=== PATIENT | female | born 2000 | race Hispanic/Latino ===

== ENCOUNTER 2020-01-13 21:07 | Emergency (ER) | payer SELFPAY ==
[2020-01-13 21:42] LABS: Basophils % (Auto) 0.4 % (0.0-1.8); Eosinophils # (Auto) 0.2 K/mm3 (0.0-0.4); Eosinophils % (Auto) 1.9 % (0.0-4.3); Hematocrit 41.9 % (30.3-42.9); Hemoglobin 14.2 gm/dl (10.1-14.3); Lymphocytes # (Auto) 2.6 K/mm3 (1.2-5.4); Lymphocytes % (Auto) 25.3 % (13.4-35.0); Mean Corpuscular HGB Conc 34 % (30-34); Mean Corpuscular Volume 99 fl (79-97); Monocytes # (Auto) 0.7 K/mm3 (0.0-0.8); Monocytes % (Auto) 7.2 % (0.0-7.3); Platelet Count 215 K/mm3 (140-440); Red Blood Count 4.25 M/mm3 (3.65-5.03); Red Cell Distribution Width 12.6 % (13.2-15.2)
[2020-01-13] MEDS ORDERED: SODIUM CHLORIDE 0.9% 1000 ML 1,000 ML IV ONE (21:46)
[2020-01-13] MEDS ORDERED: ONDANSETRON 4 MG/2 ML INJ IV ONE (21:46)
[2020-01-13] MEDS ORDERED: MORPHINE 2 MG/1 ML INJ IV ONE (22:00)
[2020-01-13 22:05] LABS: Alanine Aminotransferase 9 units/L (7-56); Albumin 4.8 g/dL (3.9-5); BUN/Creatinine Ratio 18; Blood Urea Nitrogen 9 mg/dL (7-17); Calcium 9.3 mg/dL (8.4-10.2); Hemolysis Index 7
[2020-01-13] MEDS: KETOROLAC 30 MG/1 ML INJ IV ONE (22:13)
--- NOTE | 2020-01-13 22:51 | Emergency Department Report ---
ED Abdominal Pain HPI - General Chief Complaint: Abdominal Pain Stated Complaint: ABDOMINAL PAIN Time Seen by Provider: 01/13/20 21:34 Source: patient Mode of arrival: Ambulatory Limitations: No Limitations - History of Present Illness Initial Comments: Patient is a 19-year-old female who presents emergency room with complaints of lower abdominal pain and distention that began around 6 AM this morning. She has associated nausea and vomiting. She states she has had approximately 3 episodes of vomiting. She states that 2 days ago she had a subjective fever but that has since resolved. She states that she has had constipation for 2 days. She states that she has had decreased urination. She denies any diarrhea, hematochezia, hematemesis, melena, shortness of breath, chest pain. She states that 2 days ago she went to [employer] and had a COVID-19 test because she works in [employer] and states that it was negative. She denies any sick contacts or recent travel. She states she has a past medical history of a hernia surgery repair x3, she states that her last surgery was in 2018 at [facility] in [place]. She states she has an allergy to hydrocodone and tramadol but states that she has had morphine in the hospital before without any issues. Severity scale (0 -10): 4 - Related Data Previous Rx's Medication Instructions Recorded Last Taken Type Ketorolac [Toradol] 10 mg PO Q6H PRN #7 tablet 01/14/20 Unknown Rx Ondansetron [Zofran Odt] 4 mg PO Q8HR PRN #10 tab.rapdis 01/14/20 Unknown Rx cephALEXin [Keflex] 500 mg PO BID 7 Days #14 cap 01/14/20 Unknown Rx Allergies Allergy/AdvReac Type Severity Reaction Status Date / Time hydrocodone Allergy Anaphylaxis Verified 01/13/20 21:11 tramadol Allergy Anaphylaxis Verified 01/13/20 21:11 ED Review of Systems ROS: Stated complaint: ABDOMINAL PAIN Other details as noted in HPI Comment: All other systems reviewed and negative ED Past Medical Hx - Surgical History Past Surgical History?: Yes Additional Surgical History: 3 hernia mesh SX - Social History Smoking Status: Current Every Day Smoker - Medications Home Medications: Home Medications Medication Instructions Recorded Confirmed Last Taken Type Ketorolac [Toradol] 10 mg PO Q6H PRN #7 tablet 01/14/20 Unknown Rx Ondansetron [Zofran Odt] 4 mg PO Q8HR PRN #10 tab.rapdis 01/14/20 Unknown Rx cephALEXin [Keflex] 500 mg PO BID 7 Days #14 cap 01/14/20 Unknown Rx ED Physical Exam - General Limitations: No Limitations General appearance: alert, in no apparent distress - Head Head exam: Present: atraumatic, normocephalic - Eye Eye exam: Present: normal appearance - ENT ENT exam: Present: mucous membranes moist - Respiratory Respiratory exam: Present: normal lung sounds bilaterally. Absent: respiratory distress, wheezes, rales, rhonchi, stridor, chest wall tenderness, accessory muscle use, decreased breath sounds, prolonged expiratory - Cardiovascular Cardiovascular Exam: Present: regular rate, normal rhythm, normal heart sounds. Absent: systolic murmur, diastolic murmur, rubs, gallop - GI/Abdominal GI/Abdominal exam: Present: soft, distended (lower), tenderness (lower), normal bowel sounds. Absent: guarding, rebound, rigid, hernia - Neurological Exam Neurological exam: Present: alert, oriented X3 - Psychiatric Psychiatric exam: Present: normal affect, normal mood - Skin Skin exam: Present: warm, dry, intact ED Course Vital Signs 01/13/20 01/14/20 21:10 02:24 Temperature 97.8 F 98.0 F Pulse Rate 93 H 76 Respiratory 18 15 Rate Blood Pressure 111/72 Blood Pressure 103/64 [Right] O2 Sat by Pulse 99 99 Oximetry ED Medical Decision Making - Lab Data Result diagrams: 01/13/20 21:31 01/13/20 21:31 Lab Results 01/13/20 01/13/20 01/13/20 Range/Units 21:31 21:31 21:31 WBC 10.2 (4.5-11.0) K/mm3 RBC 4.25 (3.65-5.03) M/mm3 Hgb 14.2 (10.1-14.3) gm/dl Hct 41.9 (30.3-42.9) % MCV 99 H (79-97) fl MCH 33 H (28-32) pg MCHC 34 (30-34) % RDW 12.6 L (13.2-15.2) % Plt Count 215 (140-440) K/mm3 Lymph % (Auto) 25.3 (13.4-35.0) % [place] % (Auto) 7.2 (0.0-7.3) % Eos % (Auto) 1.9 (0.0-4.3) % Baso % (Auto) 0.4 (0.0-1.8) % Lymph # 2.6 (1.2-5.4) K/mm3 [place] # 0.7 (0.0-0.8) K/mm3 Eos # 0.2 (0.0-0.4) K/mm3 Baso # 0.0 (0.0-0.1) K/mm3 Seg Neutrophils % 65.2 (40.0-70.0) % Seg Neutrophils # 6.7 (1.8-7.7) K/mm3 Sodium 134 L (137-145) mmol/L Potassium 3.8 (3.6-5.0) mmol/L Chloride 100.7 (98-107) mmol/L Carbon Dioxide 23 (22-30) mmol/L Anion Gap 14 mmol/L BUN 9 (7-17) mg/dL Creatinine 0.5 L (0.7-1.2) mg/dL Estimated GFR > 60 ml/min BUN/Creatinine Ratio 18 % Glucose 96 (65-100) mg/dL Calcium 9.3 (8.4-10.2) mg/dL Total Bilirubin 0.60 (0.1-1.2) mg/dL AST 15 (5-40) units/L ALT 9 (7-56) units/L Alkaline Phosphatase 67 (35-129) units/L Total Protein 7.4 (6.3-8.2) g/dL Albumin 4.8 (3.9-5) g/dL Albumin/Globulin Ratio 1.8 % Lipase 25 (13-60) units/L HCG, Qual (Negative) Urine Color (Yellow) Urine Turbidity (Clear) Urine pH (5.0-7.0) Ur Specific [place] (1.003-1.030) Urine Protein (Negative) mg/dL Urine Glucose (UA) (Negative) mg/dL Urine Ketones (Negative) mg/dL Urine Blood (Negative) Urine Nitrite (Negative) Urine Bilirubin (Negative) Urine Urobilinogen (<2.0) mg/dL Ur Leukocyte Esterase (Negative) Urine WBC (Auto) (0.0-6.0) /HPF Urine RBC (Auto) (0.0-6.0) /HPF U Epithel Cells (Auto) (0-13.0) /HPF Urine Bacteria (Auto) (Negative) /HPF 01/13/20 01/13/20 Range/Units 21:31 23:29 WBC (4.5-11.0) K/mm3 RBC (3.65-5.03) M/mm3 Hgb (10.1-14.3) gm/dl Hct (30.3-42.9) % MCV (79-97) fl MCH (28-32) pg MCHC (30-34) % RDW (13.2-15.2) % Plt Count (140-440) K/mm3 Lymph % (Auto) (13.4-35.0) % [place] % (Auto) (0.0-7.3) % Eos % (Auto) (0.0-4.3) % Baso % (Auto) (0.0-1.8) % Lymph # (1.2-5.4) K/mm3 [place] # (0.0-0.8) K/mm3 Eos # (0.0-0.4) K/mm3 Baso # (0.0-0.1) K/mm3 Seg Neutrophils % (40.0-70.0) % Seg Neutrophils # (1.8-7.7) K/mm3 Sodium (137-145) mmol/L Potassium (3.6-5.0) mmol/L Chloride (98-107) mmol/L Carbon Dioxide (22-30) mmol/L Anion Gap mmol/L BUN (7-17) mg/dL Creatinine (0.7-1.2) mg/dL Estimated GFR ml/min BUN/Creatinine Ratio % Glucose (65-100) mg/dL Calcium (8.4-10.2) mg/dL Total Bilirubin (0.1-1.2) mg/dL AST (5-40) units/L ALT (7-56) units/L Alkaline Phosphatase (35-129) units/L Total Protein (6.3-8.2) g/dL Albumin (3.9-5) g/dL Albumin/Globulin Ratio % Lipase (13-60) units/L HCG, Qual Negative (Negative) Urine Color Yellow (Yellow) Urine Turbidity Slightly-cloudy (Clear) Urine pH 7.0 (5.0-7.0) Ur Specific [place] 1.005 (1.003-1.030) Urine Protein <15 mg/dl (Negative) mg/dL Urine Glucose (UA) Neg (Negative) mg/dL Urine Ketones Neg (Negative) mg/dL Urine Blood Neg (Negative) Urine Nitrite Pos (Negative) Urine Bilirubin Neg (Negative) Urine Urobilinogen < 2.0 (<2.0) mg/dL Ur Leukocyte Esterase Sm (Negative) Urine WBC (Auto) 11.0 H (0.0-6.0) /HPF Urine RBC (Auto) 5.0 (0.0-6.0) /HPF U Epithel Cells (Auto) 4.0 (0-13.0) /HPF Urine Bacteria (Auto) 4+ (Negative) /HPF Vital Signs 01/13/20 01/14/20 21:10 02:24 Temperature 97.8 F 98.0 F Pulse Rate 93 H 76 Respiratory 18 15 Rate Blood Pressure 111/72 Blood Pressure 103/64 [Right] O2 Sat by Pulse 99 99 Oximetry - Radiology Data Radiology results: report reviewed CT abdomen pelvis w con INDICATION / CLINICAL INFORMATION: Pt complains of abd pain with N/V, Hx of hernia surgery x 3. TECHNIQUE: Axial CT imaging of abdomen and pelvis was obtained with IV contrast. Coronal and sagittal reformatted imaging obtained and reviewed. All CT scans at this location are performed using CT dose reduction for ALARA by means of automated exposure control. COMPARISON: None available. FINDINGS: CT abdomen with contrast demonstrates normal appearance of the liver, spleen, pancreas, kidneys, and adrenal glands. No gallbladder abnormality noted. No biliary dilatation. CT pelvis with contrast demonstrates normal appearance of the appendix. The uterus contains IUD which appears to be in grossly satisfactory position. There are 2 large cystic masses seen in the anterior inferior right pelvis, with mass effect on the urinary bladder. I suspect these will represent large multiple right ovarian cysts. Each mass measures approximately 4-5 cm in diameter. Small amount of free fluid is seen scattered throughout the pelvis. This may indicate recent cyst rupture. GI tract is grossly unremarkable. Evidence of mesh within the abdominal wall consistent with prior abdominal wall hernia repair. Visualized lung bases are clear. No significant osseous abnormality. IMPRESSION: 1. There are 2 large cystic masses in the right lower quadrant, causing mass effect on the urinary bladder. I suspect these will represent large ovarian simple cysts. However, I would suggest further evaluation with pelvic ultrasound to ensure a multiseptated cystic neoplasm is not present. There is scattered free fluid throughout the pelvis possibly indicating recent cyst rupture. 2. No other significant abnormality within the abdomen or pelvis. Signer Name: Cathy Robles MD Signed: 01/14/2020 12:05 AM Workstation Name: [id number] Transcribed By: Dictated By: Cathy Robles MD Electronically Authenticated By: Cathy Robles MD Signed Date/Time: 01/14/20 0005 DD/ 2358 TD/TT: ULTRASOUND PELVIS INDICATION / CLINICAL INFORMATION: lower abd pain, large masses on CT. TECHNIQUE: Transabdominal. Transvaginal Duplex Color Doppler used: Yes. COMPARISON: CT abdomen/pelvis, 01/13/2020 FINDINGS: UTERUS: Present. - Appearance (if present): No significant abnormality. - Size in cm (if present): 7.9 x 3.7 x 4.8 cm. - Endometrial Complex (if present): No significant abnormality.. IUD is present within the endometrium. - Mass lesions: None. - Additional findings: None. RIGHT ADNEXA: There are 2 cystic masses within the right lower quadrant, as noted on earlier CT scan. One of the masses is a simple appearing cyst measuring 4.2 x 2.7 cm. The second mass is complex in appearance with a few internal septations and multiple internal echo es. This mass measures 4.6 x 3.7 cm. LEFT ADNEXA: No significant ovarian cyst or mass. Normal color Doppler blood flow. FREE FLUID: Small to moderate amount of free fluid is scattered throughout the pelvis. ADDITIONAL FINDINGS: None. IMPRESSION: 1. 2 cystic masses are present in the right lower quadrant which correlate with abnormal findings on CT scan. One is a simple cyst. The other is a complex cyst, possibly a hemorrhagic cyst. (Tubo- ovarian abscess is also within the differential but thought to be less likely - this will need to be correlated with clinical symptoms/presentation.) The presence of small to moderate amount of fluid throughout the pelvis suggests recent cyst rupture. Suggest follow-up pelvic ultrasound in 4-6 weeks to ensure regression and/or resolution of these findings. 2. IUD present and unremarkable. Signer Name: Cathy Robles MD Signed: 01/14/2020 1:48 AM Workstation Name: [id number] Transcribed By: Dictated By: Cathy Robles MD Electronically Authenticated By: Cathy Robles MD Signed Date/Time: 01/14/20147 DD/ 9 TD/TT: - Medical Decision Making Patient is a 19-year-old female who presents emergency room with complaints of lower abdominal pain and distention that began around 6 AM this morning. She has associated nausea and vomiting. She states she has had approximately 3 episodes of vomiting. She states that 2 days ago she had a subjective fever but that has since resolved. She states that she has had constipation for 2 days. She states that she has had decreased urination. She denies any diarrhea, hematochezia, hematemesis, melena, shortness of breath, chest pain. She states that 2 days ago she went to [employer] and had a COVID-19 test because she works in [employer] and states that it was negative. She denies any sick contacts or recent travel. She states she has a past medical history of a hernia surgery repair x3, she states that her last surgery was in 2018 at [facility] in [place]. She states she has an allergy to hydrocodone and tramadol but states that she has had morphine in the hospital before without any issues. Vitals are normal. On exam: Lower abdominal tenderness to palpation with small amount of distention present in the lower abdomen, no rigidity, no guarding, no rebound, no peritoneal signs. Labs are normal. No leukocytosis. hCG is negative. UA shows evidence of UTI. CT abd pelvis: 1. The re are 2 large cystic masses in the right lower quadrant, causing mass effect on the urinary bladder. I suspect these will represent large ovarian simple cysts. However, I would suggest furthe evaluation with pelvic ultrasound to ensure a multiseptated cystic neoplasm is not present. There is scattered free fluid throughout the pelvis possibly indicating recent cyst rupture. 2. No other significant abnormality within the abdomen or pelvis. pelvic US: 1. 2 cystic masses are present in the right lower quadrant which correlate with abnormal findings on CT scan. One is a simple cyst. The other is a complex cyst, possibly a hemorrhagic cyst. (Tubo-ovarian abscess is also within the differential but thought to be less likely -this will need to be correlated with clinical symptoms/presentation.) The presence of small to moderate amount of fluid throughout the pelvis suggests recent cyst rupture. Suggest follow-up pelvic ultrasound in 4-6 weeks to ensure regression and/or resolution of these findings. 2. IUD present and unremarkable. Patient given 1 L IV fluids, morphine, Zofran, Toradol and symptoms improved and she was feeling much better and ready to go home. Discussed findings with Dr. Siddiqui, ER attending who states that this can be followed up with outpatient [facility] and agrees unlikely to be tubo-ovarian abscess as patient has normal white count and symptoms have improved. Discussed all results with patient. Patient given her ultrasound report to take to [facility]. Patient given prescription for Zofran, Toradol, Keflex for UTI. Advised patient Please take medication as prescribed. Please increase your water intake. Please follow-up with an [facility]. You need to have a repeat ultrasound in 4 to 6 weeks. Return to the emergency room for any new or worsening symptoms. - Differential Diagnosis UTI, appendicitis, colitis, ovarian cyst, ovarian torsion, fibroids, mass Critical care attestation.: If time is entered above; I have spent that time in minutes in the direct care of this critically ill patient, excluding procedure time. ED Disposition Clinical Impression: Lower abdominal pain, Complex ovarian cyst, Simple ovarian cyst Nausea & vomiting Qualifiers: Vomiting type: unspecified Vomiting Intractability: non-intractable Qualified Code(s): R11.2 - Nausea with vomiting, unspecified UTI (urinary tract infection) Qualifiers: Urinary tract infection type: acute cystitis Hematuria presence: without hematuria Qualified Code(s): N30.00 - Acute cystitis without hematuria Disposition: TO HOME OR SELFCARE Is pt being admited?: No Does the pt Need Aspirin: No Condition: Stable Instructions: Ovarian Cyst (ED), Urinary Tract Infection in Women (ED), Abdominal Pain (ED) Additional Instructions: Please take medication as prescribed. Please increase your water intake. Please follow-up with an [employer] [facility]. You need to have a repeat ultrasound in 4 to 6 weeks. Return to the emergency room for any new or worsening symptoms. Prescriptions: cephALEXin [Keflex] 500 mg PO BID 7 Days #14 cap Ketorolac [Toradol] 10 mg PO Q6H PRN #7 tablet PRN Reason: Pain Ondansetron [Zofran Odt] 4 mg PO Q8HR PRN #10 tab.rapdis PRN Reason: Nausea And Vomiting Referrals: DIPTI PAREDES MD [Staff Physician] - 3-5 Days [facility] [Provider Group] - 3-5 Days [facility] [Provider Group] - 3-5 Days [facility] [Outside] - 3-5 Days [facility] [Outside] - 3-5 Days Time of Disposition: 02:08 Print Language: SLOVENIAN
[2020-01-14 00:04] LABS: Bacteria,Urine 4+ /HPF (Negative); Bilirubin,Urine NEG (Negative); Blood,Urine NEG (Negative); Color,Urine Yellow (Yellow); Protein,Urine <15 mg/dL mg/dL (Negative); Urobilinogen,Urine < 2.0 mg/dL (<2.0)
--- NOTE | 2020-01-14 00:10 | Cat Scan Report ---
CT abdomen pelvis w con INDICATION / CLINICAL INFORMATION: Pt complains of abd pain with N/V, Hx of hernia surgery x 3. TECHNIQUE: Axial CT imaging of abdomen and pelvis was obtained with IV contrast. Coronal and sagittal reformatte d imaging obtained and reviewed. All CT scans at this location are performed using CT dose reduction for ALARA by means of automated exposure control. COMPARISON: None available. FINDINGS: CT abdomen with contrast demonstrates normal appearance of the liver, spleen, pancreas, kidneys, and adrenal glands. No gallbladder abnormality noted. No biliary dilatation. CT pelvis with contrast demonstrates normal appearance of the appendix. The uterus contains IUD which appears to be in grossly satisfactory position. There are 2 large cystic masses seen in the anterior inferior right pelvis, with mass effect on the urinary bladder. I suspect these will represent large multiple right ovarian cysts. Each mass measures approximately 4-5 cm in diameter. Small amount of f ree fluid is seen scattered throughout the pelvis. This may indicate recent cyst rupture. GI tract is grossly unremarkable. Evidence of mesh within the abdominal wall consistent with prior a bdominal wall hernia repair. Visualized lung bases are clear. No significant osseous abnormality. IMPRESSION: 1. There are 2 large cystic masses in the right lower quadrant, causing mass effect on the urinary bl adder. I suspect these will represent large ovarian simple cysts. However, I would suggest further ev aluation with pelvic ultrasound to ensure a multiseptated cystic neoplasm is not present. There is sc attered free fluid throughout the pelvis possibly indicating recent cyst rupture. 2. No other significant abnormality within the abdomen or pelvis. Signer Name: Cathy Robles MD Signed: 01/14/2020 12:05 AM Workstation Name: [id number]
--- NOTE | 2020-01-14 01:52 | Ultrasound Report ---
ULTRASOUND PELVIS INDICATION / CLINICAL INFORMATION: lower abd pain, large masses on CT. TECHNIQUE: Transabdominal. Transvaginal Duplex Color Doppler used: Yes. COMPARISON: CT abdomen/pelvis, 01/13/2020 FINDINGS: UTERUS: Present. - Appearance (if present): No significant abnormality. - Size in cm (if present): 7.9 x 3.7 x 4.8 cm. - Endometrial Complex (if present): No significant abnormality.. IUD is present within the endometriu m. - Mass lesions: None. - Additional findings: None. RIGHT ADNEXA: There are 2 cystic masses within the right lower quadrant, as noted on earlier CT scan. One of the masses is a simple appearing cyst measuring 4.2 x 2.7 cm. The second mass is complex in a ppearance with a few internal septations and multiple internal echoes. This mass measures 4.6 x 3.7 c m. LEFT ADNEXA: No significant ovarian cyst or mass. Normal color Doppler blood flow. FREE FLUID: Small to moderate amount of free fluid is scattered throughout the pelvis. ADDITIONAL FINDINGS: None. IMPRESSION: 1. 2 cystic masses are present in the right lower quadrant which correlate with abnormal findings on CT scan. One is a simple cyst. The other is a complex cyst, possibly a hemorrhagic cyst. (Tubo-ovaria n abscess is also within the differential but thought to be less likely -this will need to be correla karolina with clinical symptoms/presentation.) The presence of small to moderate amount of fluid throughou t the pelvis suggests recent cyst rupture. Suggest follow-up pelvic ultrasound in 4-6 weeks to ensure regression and/or resolution of these findings. 2. IUD present and unremarkable. Signer Name: Cathy Robels MD Signed: 01/14/2020 1:48 AM Workstation Name: [email or web address]
[2020-01-14] MEDS: KETOROLAC 30 MG/1 ML INJ IV ONE (01:54)
[2020-01-14 03:01] VITALS: BP 103/64
== END 2020-01-14 02:24 | disposition home or self-care (01) ==
LOC: ED 21:07
DX: N83.299 Other ovarian cyst, unspecified side (principal); N39.0 Urinary tract infection, site not specified; F17.200 Nicotine dependence, unspecified, uncomplicated; Z98.890 Other specified postprocedural states; Z88.6 Allergy status to analgesic agent
CPT/HCPCS: 36415; 74177; 76830; 76856; 80053; 81001; 83690; 84703; 85025; 87086; 96361; 96374; 96375; 99284; J1885; J2270; J2405; J7030; Q9967

== ENCOUNTER 2020-04-18 21:55 | Emergency (ER) | payer MEDICAID ==
--- NOTE | 2020-04-18 23:26 | XRay Report ---
LEFT ELBOW 4 VIEWS INDICATION / CLINICAL INFORMATION: Left elbow pain and swelling after fall. COMPARISON: None available. FINDINGS: BONES and JOINT(S): No acute fracture or subluxation. No significant arthritis. SOFT TISSUES: No significant abnormality. ADDITIONAL FINDINGS: None. IMPRESSION: 1. No acute findings. Signer Name: Hilario Etienne MD Signed: 04/18/2020 11:21 PM Workstation Name: [id number]
--- NOTE | 2020-04-18 23:45 | Emergency Department Report ---
ED Upper Extremity Inj HPI - General Chief Complaint: Fall Stated Complaint: LEFT ELBOW PAIN DUE TO FALL Time Seen by Provider: 04/18/20 23:20 Source: patient Mode of arrival: Ambulatory Limitations: No Limitations - History of Present Illness MD Complaint: Injury to:: left, elbow Other Extremity Injury: Elbow: Left Other Injuries: none Handedness: right Improves With: none Worsens With: none Context: fall (Was walking downstairs tripped and fell striking her elbow on a step) Associated Symptoms: denies: suspects foreign body, nausea/vomiting, heard/felt popping sensat - Related Data Previous Rx's Medication Instructions Recorded Last Taken Type Ketorolac [Toradol] 10 mg PO Q6H PRN #7 tablet 01/14/20 Unknown Rx Ondansetron [Zofran Odt] 4 mg PO Q8HR PRN #10 tab.rapdis 01/14/20 Unknown Rx cephALEXin [Keflex] 500 mg PO BID 7 Days #14 cap 01/14/20 Unknown Rx Ketorolac [Toradol] 10 mg PO Q6H PRN #10 tablet 04/18/20 Unknown Rx Allergies Allergy/AdvReac Type Severity Reaction Status Date / Time hydrocodone Allergy Anaphylaxis Verified 01/13/20 21:11 tramadol Allergy Anaphylaxis Verified 01/13/20 21:11 ED Review of Systems ROS: Stated complaint: LEFT ELBOW PAIN DUE TO FALL Other details as noted in HPI Comment: All other systems reviewed and negative ED Past Medical Hx - Past Medical History Previous Medical History?: No - Surgical History Past Surgical History?: Yes Hx Open Heart Surgery: Yes ([facility] [employer]) Additional Surgical History: 3 hernia mesh SX - Social History Smoking Status: Current Every Day Smoker - Medications Home Medications: Home Medications Medication Instructions Recorded Confirmed Last Taken Type Ketorolac [Toradol] 10 mg PO Q6H PRN #7 tablet 01/14/20 Unknown Rx Ondansetron [Zofran Odt] 4 mg PO Q8HR PRN #10 tab.rapdis 01/14/20 Unknown Rx cephALEXin [Keflex] 500 mg PO BID 7 Days #14 cap 01/14/20 Unknown Rx Ketorolac [Toradol] 10 mg PO Q6H PRN #10 tablet 04/18/20 Unknown Rx ED Physical Exam - General Limitations: No Limitations General appearance: alert, in no apparent distress - Head Head exam: Present: atraumatic, normocephalic - Eye Eye exam: Present: normal appearance, PERRL, EOMI Pupils: Present: normal accommodation - ENT ENT exam: Present: normal exam, normal orophraynx, mucous membranes moist. Absent: TM's normal bilaterally - Neck Neck exam: Present: normal inspection, full ROM - Respiratory Respiratory exam: Present: normal lung sounds bilaterally. Absent: respiratory distress, wheezes, rales, chest wall tenderness, accessory muscle use - Cardiovascular Cardiovascular Exam: Present: regular rate, normal rhythm. Absent: systolic murmur, diastolic murmur, rubs, gallop - GI/Abdominal GI/Abdominal exam: Present: soft, normal bowel sounds - Extremities Exam Extremities exam: Present: normal inspection, tenderness (Tenderness to the olecranon process tenderness to the medial epicondyle in the area of the median nerve) - Back Exam Back exam: Present: normal inspection - Neurological Exam Neurological exam: Present: alert, oriented X3 - Psychiatric Psychiatric exam: Present: normal affect, normal mood - Skin Skin exam: Present: warm, dry, intact, normal color. Absent: rash ED Medical Decision Making - Radiology Data Radiology results: report reviewed (X-ray shows no fracture no acute processes) Critical care attestation.: If time is entered above; I have spent that time in minutes in the direct care of this critically ill patient, excluding procedure time. ED Disposition Clinical Impression: Contusion of elbow, left, Lateral epicondylitis, left elbow Disposition: DC-01 TO HOME OR SELFCARE Is pt being admited?: No Does the pt Need Aspirin: No Condition: Stable Instructions: Tennis Elbow (ED), Contusion in Adults (ED), RICE Therapy (ED), Ice Pack Application (ED) Prescriptions: Ketorolac [Toradol] 10 mg PO Q6H PRN #10 tablet PRN Reason: Pain Referrals: PRIMARY CARE, [Primary Care Provider] - 3-5 Days [facility] [Provider Group] - 3-5 Days
[2020-04-19 00:10] VITALS: BP 101/69
== END 2020-04-19 00:20 | disposition home or self-care (01) ==
LOC: ED 21:55
DX: S50.02XA Contusion of left elbow, initial encounter (principal); M77.12 Lateral epicondylitis, left elbow; W10.9XXA Fall (on) (from) unspecified stairs and steps, initial encounter; Y93.89 Activity, other specified; Y92.89 Other specified places as the place of occurrence of the external cause; Y99.8 Other external cause status; F17.200 Nicotine dependence, unspecified, uncomplicated; Z98.890 Other specified postprocedural states; Z79.899 Other long term (current) drug therapy; Z88.8 Allergy status to other drugs, medicaments and biological substances

== ENCOUNTER 2020-07-14 14:32 | Emergency (ER) | payer MEDICAID | END 2020-07-14 18:00 | disposition left against medical advice (07) | LOC: ED 14:32 | DX: O20.8 Other hemorrhage in early pregnancy (principal); Z3A.01 Less than 8 weeks gestation of pregnancy; Z53.21 Procedure and treatment not carried out due to patient leaving prior to being seen by health care provider ==

== ENCOUNTER 2020-09-08 11:45 | Emergency (ER) | payer MEDICAID | END 2020-09-08 11:47 | LOC: ED 11:45 | DX: O26.891 Other specified pregnancy related conditions, first trimester (principal); R06.02 Shortness of breath; Z3A.14 14 weeks gestation of pregnancy; Z53.21 Procedure and treatment not carried out due to patient leaving prior to being seen by health care provider ==

== ENCOUNTER 2020-10-24 22:57 | Outpatient (CLI) | payer MEDICAID ==
[2020-10-25 00:07] VITALS: BP 94/50
[2020-10-25 01:00] LABS: Bacteria,Urine 4+ /HPF (Negative); Bilirubin,Urine NEG (Negative); Blood,Urine NEG (Negative); Color,Urine Yellow (Yellow); Mucus,Urine FEW /HPF; Protein,Urine <15 mg/dL mg/dL (Negative); Urobilinogen,Urine < 2.0 mg/dL (<2.0)
--- NOTE | 2020-10-25 01:24 | Ultrasound Report ---
US OB LIMITED INDICATION / CLINICAL INFORMATION: LOF. Amniotic fluid evaluation. COMPARISON: None available. FINDINGS: There is a single intrauterine in a transverse position with the head on the maternal left. The heart rate is 143 bpm. Amniotic fluid volume is normal with the largest pocket measu ring 8 cm. Signer Name: Ricki Ward MD Signed: 10/25/2020 1:19 AM Workstation Name: [id number]
== END 2020-10-25 01:22 | disposition home or self-care (01) ==
LOC: TRG 22:57 → MERGE 22:57 → APU 23:00 → TRG 10-25 01:22
PROVIDERS: ATTEND Obstetrics & Gynecology
DX: O42.912 Preterm premature rupture of membranes, unspecified as to length of time between rupture and onset of labor, second trimester (principal); Z3A.20 20 weeks gestation of pregnancy
CPT/HCPCS: 36415; 59025; 76815; 81001; 84112

== ENCOUNTER 2020-12-23 22:45 | Outpatient (CLI) | payer MEDICAID ==
[2020-12-23] MEDS ORDERED: LACTATED RINGERS 1,000 ML IV SCH (23:15)
[2020-12-23 23:28] LABS: Amorphous Crystals,Urine 1+; Bacteria,Urine 2+ /HPF (Negative); Bilirubin,Urine NEG (Negative); Blood,Urine NEG (Negative); Color,Urine Yellow (Yellow); Mucus,Urine FEW /HPF; Protein,Urine <15 mg/dL mg/dL (Negative); Urobilinogen,Urine < 2.0 mg/dL (<2.0)
[2020-12-23 23:30] VITALS: BP 109/67
[2020-12-23] MEDS ORDERED: TERBUTALINE 1 MG/1 ML INJ SUB-Q SCH (23:45)
== END 2020-12-24 00:07 | disposition home or self-care (01) ==
LOC: TRG 22:45 → APU 22:55 → TRG 12-24 00:07
PROVIDERS: ATTEND Obstetrics & Gynecology
DX: O47.03 False labor before 37 completed weeks of gestation, third trimester (principal); Z3A.28 28 weeks gestation of pregnancy
CPT/HCPCS: 59025; 81001; 87086

== ENCOUNTER 2021-02-05 18:01 | Observation (INO) | payer MEDICAID ==
[2021-02-05 19:22] LABS: Bilirubin,Urine NEG (Negative); Blood,Urine NEG (Negative); Color,Urine Yellow (Yellow); Mucus,Urine FEW /HPF; Protein,Urine <15 mg/dL mg/dL (Negative); Urobilinogen,Urine < 2.0 mg/dL (<2.0)
[2021-02-05] MEDS ORDERED: LACTATED RINGERS 1,000 ML IV SCH (20:00)
[2021-02-05] MEDS ORDERED: DOCUSATE SODIUM 100 MG CAP PO PRN (21:03)
[2021-02-05] MEDS ORDERED: ACETAMINOPHEN 325 MG TAB PO PRN (21:03)
[2021-02-05] MEDS ORDERED: SIMETHICONE 80 MG CHEW TAB PO PRN (21:10)
[2021-02-05] MEDS ORDERED: ONDANSETRON 4 MG/2 ML INJ IV PRN (21:10)
[2021-02-05] MEDS ORDERED: ALUM-MAG HYDROXIDE-SIMETHICONE 200-200-20MG/5ML ORAL LIQD 30 ML PO PRN (21:10)
[2021-02-05 21:35] LABS: Basophils % (Auto) 0.3 % (0.0-1.8); Eosinophils # (Auto) 0.2 K/mm3 (0.0-0.4); Eosinophils % (Auto) 1.3 % (0.0-4.3); Hematocrit 31.8 % (30.3-42.9); Hemoglobin 11.1 gm/dl (10.1-14.3); Lymphocytes # (Auto) 2.4 K/mm3 (1.2-5.4); Mean Corpuscular HGB Conc 35 % (30-34); Mean Corpuscular Volume 95 fl (79-97); Monocytes % (Auto) 8.1 % (0.0-7.3); Platelet Count 296 K/mm3 (140-440); Red Blood Count 3.37 M/mm3 (3.65-5.03); Red Cell Distribution Width 12.5 % (13.2-15.2)
[2021-02-05 21:59] LABS: Alanine Aminotransferase 7 units/L (7-56); Albumin 3.8 g/dL (3.9-5); Blood Urea Nitrogen 5 mg/dL (7-17); Hemolysis Index 8
[2021-02-05 22:04] LABS: BUN/Creatinine Ratio 13
[2021-02-05] MEDS ORDERED: diphenhydrAMINE 50 MG CAP PO NR (23:00)
[2021-02-06 00:58] LABS: Amphetamine Screen,Urine PRESUMPTIVE NEGATIVE; Benzodiazepines Screen,Urine PRESUMPTIVE NEGATIVE; Cannabinoid Screen,Urine PRESUMPTIVE NEGATIVE; Cocaine Screen,Urine PRESUMPTIVE NEGATIVE; Methadone Screen,Urine PRESUMPTIVE NEGATIVE; Opiate Screen,Urine PRESUMPTIVE NEGATIVE
--- NOTE | 2021-02-06 01:03 | History and Physical Report ---
History of Present Illness Date of examination: 02/05/21 Date of admission: 02/05/21 Chief complaint: contractions History of present illness: at 35+ weeks here for feeling ctx and pelvic pressure. care at [facility]. pt admits to movement, denies LOF or vag bleeding. pt states she received steroids full course in [facility] on January 06- while visiting family there. Pt declines repeat steroids tonight and does not want her labor stopped. Pt was seen last week in clinic. Pt denies chest pain, headache or wheezing with history of asthma Past History Past Medical History: other (From records, pt has congenital heart dz with repair at 3yrs old, LVEF 55% and unclear if pulmonary HTN still present; Klebsiella then GBS in UTI x2 treated earlier this preg; Varicella non-immune) Past Surgical History: other (repair of PDA for congenital heart disease in childhood) Family/Genetic History: none Social history: no significant social history - Obstetrical History Expected Date of Delivery: 03/12/21 Actual Gestation: 35 Week(s) 0 Day(s) : 1 Para: 0 Number of Living Children: 0 Medications and Allergies Allergies Allergy/AdvReac Type Severity Reaction Status Date / Time hydrocodone Allergy Anaphylaxis Verified 10/25/20 11:42 tramadol Allergy Anaphylaxis Verified 10/25/20 11:42 Home Medications Medication Instructions Recorded Confirmed Last Taken Type Ketorolac [Toradol] 10 mg PO Q6H PRN #7 tablet 01/14/20 Unknown Rx Ondansetron [Zofran Odt] 4 mg PO Q8HR PRN #10 tab.rapdis 01/14/20 Unknown Rx cephALEXin [Keflex] 500 mg PO BID 7 Days #14 cap 01/14/20 Unknown Rx Ketorolac [Toradol] 10 mg PO Q6H PRN #10 tablet 04/18/20 Unknown Rx Active Meds: Active Medications Lactated Ringer's (Lactated Ringers) 1,000 mls @ 125 mls/hr IV DIRECT VU Review of Systems All systems: negative (intermittent ctx and pelvic pressure) - Vital Signs Vital signs: Vital Signs Pulse Pulse Ox 85 98 02/05/21 18:46 02/05/21 18:46 Temp Pulse Resp BP Pulse Ox 98.6 F 86 20 110/66 98 02/05/21 18:51 02/05/21 20:16 02/05/21 18:51 02/05/21 18:51 02/05/21 20:16 - Physical Exam Breasts: Positive: deferred Cardiovascular: Regular rate Lungs: Positive: Normal air movement Abdomen: Positive: normal appearance Extremities: Positive: normal - Obstetrical FHR: category 1 Uterine Contraction Monitor Mode: External Cervical Dilatation: 3 (by triage nurse) Uterine Contraction Pattern: Irregular Results All other labs normal. Assessment and Plan IUP at 35.0wks in contractions, need to rule out labor; H/O congenital heart dz with PDA repaired and EF 55% per Dr. Art consult on 12/18/20; Treated for UTI earlier this preg with GBS+ in urine; Need to confirm if pulmonary HTN still present from [facility]. Varicella nonimmune and for vaccine post delivery 1. Admit to antepartum floor, Place IV access without fluids and do expectant mgt 2. Will consult [facility] in am and official report that pt may have vaginal 3. Send blood type and screen, cbc, cmp 4. Notify cardiology if pt in active labor All questions encouraged and answered
--- NOTE | 2021-02-06 01:42 | Ultrasound Report ---
ULTRASOUND BIOPHYSICAL PROFILE INDICATION / CLINICAL INFORMATION: well being. COMPARISON: OB ultrasound from 10/25/2020. FINDINGS: BREATHING MOVEMENT = 2 GROSS BODY MOVEMENT = 2 TONE = 2 QUALITATIVE AMNIOTIC FLUID VOLUME = 2 TOTAL BIOPHYSICAL SCORE = 8/8 AMNIOTIC FLUID INDEX (cm) = 14.1 PRESENTATION: Cephalic. HEART RATE (beats per minute): 152 ADDITIONAL FINDINGS: None. IMPRESSION: 1. Biophysical Score = 8/8 Signer Name: Hilario Etienne MD Signed: 02/06/2021 1:38 AM Workstation Name: [id number]
--- NOTE | 2021-02-06 01:45 | Event Note ---
Date: 02/06/21 Nurse notified me that pt had variable down to the 60's for about 3mins, tracing seen and there is some loss of contact. BPP done and same 04/29 with MICHAEL 14; will continue expectant mgt and pelvic exam by charge nurse with cervix unchanged. IV fluids given after IV finally successfully placed by charge nurse. Will heplock after pt receives 1 liter of fluid.
[2021-02-06] MEDS ORDERED: AMPICILLIN/NS 1 GM/50 ML 1 GM/50 ML BAG IV SCH (02:00)
[2021-02-06] MEDS ORDERED: PRENATAL VIT27-FE FUMARATE-FOLIC ACID VIT TAB PO SCH (10:00)
[2021-02-06 12:35] VITALS: BP 119/69
--- NOTE | 2021-02-06 13:02 | Consultation ---
History of Present Illness Consult date: 02/06/21 Consult reason: known to you History of present illness: This is a 20-year old F whom is 35 weeks gestation who presents to this hospital with pelvic pressure, admitted with contractions. Patient is known to [facility] and is followed by Dr Art on a routine basis. 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 2 months she had an echocardiogram that showed normal left ventricular systolic function. 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 Patient denies complications during her . She denies unusual shortness of breath, denies chest pain, and has no edema. Past History Social history: no significant social history Medications and Allergies Allergies Allergy/AdvReac Type Severity Reaction Status Date / Time hydrocodone Allergy Anaphylaxis Verified 10/25/20 11:42 tramadol Allergy Anaphylaxis Verified 10/25/20 11:42 Home Medications Medication Instructions Recorded Confirmed Last Taken Type No Known Home Medications [No 02/06/21 02/06/21 Unknown History Reported Home Medications] Active Meds: Active Medications Acetaminophen (Acetaminophen 325 Mg Tab) 650 mg PO Q4H PRN PRN Reason: Pain MILD(1-3)/Fever >100.5/ROSEN Al Hydrox/Mg Hydrox/Simethicone (Alum-Mag Hydroxide-Simethicone [phone]/5ml Oral Liqd 30 Ml) 30 ml PO Q6H PRN PRN Reason: Indigestion Diphenhydramine HCl (Diphenhydramine 50 Mg Cap) 50 mg PO ONCE NR Stop: 02/06/21 22:59 Last Admin: 02/05/21 22:25 Dose: 50 mg Documented by: Docusate Sodium (Docusate Sodium 100 Mg Cap) 100 mg PO Q12H PRN PRN Reason: Constipation Lactated Ringer's (Lactated Ringers) 1,000 mls @ 125 mls/hr IV DIRECT VU Last Admin: 02/06/21 12:41 Dose: 125 mls/hr Documented by: Multivitamins/Iron/Calcium ( [id number] Fumarate-Folic Acid Vit Tab) 1 each PO QDAY VU Last Admin: 02/06/21 12:38 Dose: 1 each Documented by: Ondansetron HCl (Ondansetron 4 Mg/2 Ml Inj) 4 mg IV Q6H PRN PRN Reason: Nausea And Vomiting Simethicone (Simethicone 80 Mg Chew Tab) 80 mg PO Q6H PRN PRN Reason: Gas pain Physical Examination Vital Signs Pulse Pulse Ox 85 98 02/05/21 18:46 02/05/21 18:46 General appearance: no acute distress HEENT: Positive: PERRL Neck: Positive: trachea midline Cardiac: Positive: Reg Rate and Rhythm Lungs: Positive: Normal Breath Sounds Neuro: Positive: Grossly Intact Extremities: Absent: edema Results 02/05/21 21:23 02/05/21 21:23 Cardiac Enzymes 02/05/21 Range/Units 21: AST 13 (5-40) units/L CBC 02/05/21 Range/Units 21:23 WBC 12.6 H (4.5-11.0) K/mm3 RBC 3.37 L (3.65-5.03) M/mm3 Hgb 11.1 (10.1-14.3) gm/dl Hct 31.8 (30.3-42.9) % Plt Count 296 (140-440) K/mm3 Lymph # (Auto) 2.4 (1.2-5.4) K/mm3 [place] # (Auto) 1.0 H (0.0-0.8) K/mm3 Eos # (Auto) 0.2 (0.0-0.4) K/mm3 Baso # (Auto) 0.0 (0.0-0.1) K/mm3 Comprehensive Metabolic Panel 02/05/21 Range/Units 21:23 Sodium 135 L (137-145) mmol/L Potassium 3.8 (3.6-5.0) mmol/L Chloride 100.2 (98-107) mmol/L Carbon Dioxide 22 (22-30) mmol/L BUN 5 L (7-17) mg/dL Creatinine 0.4 L (0.6-1.2) mg/dL Glucose 76 (65-100) mg/dL Calcium 9.0 (8.4-10.2) mg/dL AST 13 (5-40) units/L ALT 7 (7-56) units/L Alkaline Phosphatase 160 H (35-129) units/L Total Protein 6.2 L (6.3-8.2) g/dL Albumin 3.8 L (3.9-5) g/dL
[2021-02-06] MEDS ORDERED: ACETAMINOPHEN W/CODEINE 300-30 MG TAB PO PRN (13:59)
--- NOTE | 2021-02-07 10:49 | Electrocardiograph Report ---
[facility] Test Date: 2021-02-06 Test Time: 13:42:11 Pat Name: TODD ROLDAN Department: Room: 2003 09 Gender: F [employer] Teacher: COLE : 2000 Requested By: MARITZA JACKSON Order Number: [id number] Reading MD: Alfonso Moss Measurements Intervals [place] Rate: 82 P: 42 MI: 120 QRS: 45 QRSD: 94 T: 8 QT: 373 QTc: 435 Interpretive Statements Sinus rhythm No previous ECG available for comparison Electronically Signed On 02-07-2021 10:48:45 EDT by Alfonso Moss
== END 2021-02-06 15:21 | disposition home or self-care (01) ==
LOC: TRG 18:01 → APU 18:04 → LD 20:34 → INTOOBSV 21:03 → LD 21:03 → TRG 21:03
PROVIDERS: ADMIT Obstetrics & Gynecology; ATTEND Obstetrics & Gynecology
DX: O62.9 Abnormality of forces of labor, unspecified (principal); Z20.822 Contact with and (suspected) exposure to COVID-19; Z3A.35 35 weeks gestation of pregnancy; Z79.899 Other long term (current) drug therapy
CPT/HCPCS: 36415; 76819; 80053; 80307; 81001; 85025; 86900; 86901; 93005; G0378; J7120; U0003

== ENCOUNTER 2021-02-07 21:46 | Outpatient (CLI) | payer MEDICAID ==
[2021-02-07 22:19] VITALS: BP 131/78
[2021-02-07] MEDS ORDERED: LACTATED RINGERS 500 ML IV ONE (22:19)
[2021-02-07] MEDS ORDERED: TERBUTALINE 1 MG/1 ML INJ SUB-Q PRN (23:35)
== END 2021-02-08 00:03 | disposition home or self-care (01) ==
LOC: TRG 21:46 → APU 21:47 → TRG 02-08 00:03
PROVIDERS: ATTEND Obstetrics & Gynecology
DX: O47.03 False labor before 37 completed weeks of gestation, third trimester (principal); Z3A.35 35 weeks gestation of pregnancy
CPT/HCPCS: 59025